=== PATIENT | female | born 2000 | race Hispanic/Latino ===

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

== ENCOUNTER 2022-08-12 23:07 | Emergency (ER) | payer OTHER ==
[~2022-08-12] VITALS: Ht 160 cm; Wt 90.3 kg
[2022-08-13 01:20] LABS: CLARITY,URINE CLEAR (CLEAR); COLOR,URINE YELLOW (YELLOW); KETONES,URINE NEGATIVE (NEGATIVE); LEUKOCYTE ESTERASE ,URINE NEGATIVE (NEGATIVE); NITRITE,URINE NEGATIVE (NEGATIVE); PROTEIN,URINE DIPSTICK NEGATIVE (NEGATIVE); URINE UROBILINOGEN 0.2 mg/dL (0.2 - 1)
[2022-08-13 01:32] LABS: AMORPHOUS SEDIMENT,URINE FEW (FEW); BACTERIA,URINE MODERATE /HPF; EPITHELIAL CELLS,URINE FEW /LPF; WBC,URINE (MAN) 0-5 /HPF (0-5)
[2022-08-13] MEDS ORDERED: AMOXICILLIN500 MG PO (04:42)
[2022-08-13 05:27] VITALS: BP 134/80; PULSE 75; RESP 18; TEMP 98.6; O2SAT 100
== END 2022-08-13 05:03 | disposition home or self-care (01) ==
LOC: ER 23:20
DX: O26.891 Other specified pregnancy related conditions, first trimester (principal); R10.30 Lower abdominal pain, unspecified; F41.9 Anxiety disorder, unspecified
CPT/HCPCS: 36415; 76817; 81001; 81025; 84702; 99283